=== PATIENT | female | born 1950 | race Hispanic/Latino ===

== ENCOUNTER 2022-10-04 12:07 | Day surgery (SDC) | payer OTHER ==
[2022-10-03 11:42] LABS: Absolute Lymphocytes (CBC) 1.4 K/uL (0.7-4.9); Hematocrit 30.3 % (36.0-45.0); Lymphocytes % 27.5 % (15.3-44.8)
[2022-10-03 11:57] LABS: Potassium 4.6 mmol/L (3.5-5.1)
--- NOTE | 2022-10-03 12:05 | RAD REPORT ---
EXAM DESCRIPTION: RAD - Chest Pa And Lat (2 Views) - 10/03/2022 11:59 am CLINICAL HISTORY: Pre op pending axillary mass removal COMPARISON: No comparisons FINDINGS: Lines: None. Lungs: No evidence of edema or pneumonia. Pleural: No significant pleural effusions or pneumothorax. Cardiac: The heart size is within normal limits. Mediastinum: Within normal limits. Bones: No acute fractures. Fusion hardware in the cervical spine. Other: None IMPRESSION: No acute cardiopulmonary disease.
--- NOTE | 2022-10-03 17:42 | EKG ---
Test Date: 2022-10-03 Test Time: 11:25:35 Operations Asst: TERRELL MEASUREMENT RESULTS: Intervals: Rate: 75 AL: 136 QRSD: 72 QT: 370 QTc: 413 [place]: P: 70 AL: 136 QRS: 61 T: 81 INTERPRETIVE STATEMENTS: Normal sinus rhythm Normal ECG No previous ECG available for comparison Electronically Signed On 10-03-22 17:41:24 [employer]LECT[employer] by Demarcus Ramirez
[2022-10-04] MEDS ORDERED: NA CHLORIDE 0.9% 1,000 ML ONE (12:18)
[2022-10-04] MEDS ORDERED: CIPROFLOXACIN 400mg IV 400 MG/200 ML BAG IV ONE (12:24)
[2022-10-04] MEDS ORDERED: propofoL 200 MG/20 ML VIAL IV ONE (12:59)
[2022-10-04] MEDS ORDERED: FENTANYL CITR 100 MCG/2 ML ONE (12:59)
[2022-10-04] MEDS ORDERED: LIDOCAINE 2% MPF 5 ML VIAL ONE (13:01)
[2022-10-04] MEDS ORDERED: MIDAZOLAM HCL 2 MG/2 ML INJ ONE (13:01)
[2022-10-04] MEDS ORDERED: ONDANSETRON 4 MG/2 ML VIAL ONE ×2 (13:02→14:42)
[2022-10-04] MEDS ORDERED: dexAMETHasone 10 MG/ML VIAL ONE (14:03)
--- NOTE | 2022-10-04 14:30 | P.BOP ---
Preoperative diagnosis: right axillary infected mass Postoperative diagnosis: same Primary procedure: Excisional biopsy of right axillary infected mass 4x4cm Estimated blood loss: <10cc Specimen: mass Findings: mass Anesthesia: General Complications: None Transferred to: Recovery Room Condition: Good
[2022-10-04] MEDS: HYDROMORPHONE HCL 1 MG/ML INJ ONE ×4 (14:40→14:56)
[2022-10-04] MEDS ORDERED: HYDROCODONE/APAP 5/325 MG TAB ONE (15:23)
[2022-10-04 16:33] VITALS: BP 149/73; TEMP 96.7; O2SAT 94
--- NOTE | 2022-10-05 04:45 | OP ---
Date of Procedure: 10/04/2022 Surgeon: Rohan Ng MD Preoperative Diagnosis: Right axillary infected mass. Postoperative Diagnosis: Right axillary infected mass. Procedure: Excisional biopsy of right axillary infected subcutaneous mass, 4 x 4 cm. Estimated Blood Loss: Less than 10 mL. Specimen: Subcutaneous mass. Anesthesia: General plus local. Indications: This is the case of a 72-year-old patient who comes to us with an infected mass in the axillary area. The patient has been on antibiotics. She even went to the ER and had incision and dr lackey, but it did not improve her condition. It is very tender, it is still putting purulent discha rge, so she wants it excised. The benefits, alternatives, and risks of excision under anesthesia wer e fully explained, which include but not limited to infection, bleeding, damage to adjacent structure s, anesthesia complication, nonhealing wound, [place], and even . She also understands this may not relieve her symptoms. She might need more than one surgical intervention she will require wound care . She signed the consent. Description Of Procedure: The area of concern was marked by me and the patient in the holding room. The patient was brought to the operating room, placed in the supine position. Anesthesia was given without complication. Right axillary area was prepped and draped in a sterile fashion. A time-out w as called. Local anesthesia was applied followed by a wedge incision on the skin to include also the subcutaneous tissue. The mass was completely excised. The area was irrigated, hemostasis obtained, and the area was packed with wet-to- dry dressing. The patient tolerated the procedure well. The patient was sent to Recovery in stable condition. JAZMINE/JONY Voice ID: [id number] Report ID: [id number]
--- NOTE | 2022-10-05 04:45 | DS ---
Date of Discharge: 10/04/2022 Diagnosis: Right axillary infected mass. Procedure: Excisional biopsy of right axillary infected subcutaneous mass. Disposition: Home. Activity: As tolerated. No heavy lifting. Follow Up: In my office next Friday. Call for appointment. Discharge Instructions: The patient will continue with triple antibiotics over the surgical site, an d then wet-to-dry dressing daily. JAZMINE/JONY Voice ID: [id number] Report ID: [id number]
== END 2022-10-04 16:10 | disposition home or self-care (01) ==
LOC: OR 12:07 → EDBD 13:30 → OR 16:10
PROVIDERS: ATTEND Surgery
PROC: 0JBD0ZZ Excision of Right Upper Arm Subcutaneous Tissue and Fascia, Open Approach (ICD-10-PCS; principal; 2022-10-04 13:30)
DX: R22.31 Localized swelling, mass and lump, right upper limb (principal); I96 Gangrene, not elsewhere classified
CPT/HCPCS: 93005; 85025; 80048; 36415; 82947; 88305; 71046; 11406; J2704; J2001; J2250; J3010; J1100; J1170 ×2; J7030; J2405 ×2; J0744; 88304

== ENCOUNTER 2023-08-08 10:39 | Emergency (ER) | payer OTHER ==
--- OUTSIDE RECORDS SUMMARY | 2023-08-08 10:43 | XMS REPORT | Continuity of Care Document ---
:1950 Author Organization Formerly [facility] t Address [address] [facility] [address] [place] [address] Care Team Providers Name Role Phone ABRAHAM CARLSON Primary Care Physician Unavailable CHANDRA MARQUEZ Attending Clinician Unavailable Chandra Marquez MD Attending Clinician DARRICK CAZARES Attending Clinician Unavailable Darrick Cazares DO Attending Clinician ARTUR BRIGGS Attending Clinician Unavailable Artur Briggs MD Attending Clinician [phone] Tabatha Woodruff PA-C Attending Clinician TABATHA WOODRUFF Attending Clinician Unavailable Gamal Young Attending Clinician Yoan Vasquez MD Attending Clinician YOAN VASQUEZ Attending Clinician Unavailable Doctor Unassigned, [place] Attending Clinician Unavailable Payers Payer Name Policy Type Policy Number Effective Date Expiration Date [facility] [id number] [facility] 00:00:00 PPO Problems Condition Condition Condition Status Onset Resolution Last Treating Co mments Source Name Details Category Date Date Treatment Clinician Date No known No known Disease Unive rs active active ity of problems problems [place] [facility] [place] Allergies, Adverse Reactions, Alerts Allergy Allergy Status Severity Reaction(s) Onset Inactive Treating Comm ents Source Name Type Date Date Clinician PENICILL DRUG Active Rash Univers IN INGREDI 03-11 ity of 00:00: [place] 00 Medical Branch Penicill Propensi Active Rash Univer s in ty to 03-11 ity of adverse 00:00: [place] reaction 00 Medical s Branch Social History Social Habit Start Date Stop Date Quantity Comments Source Gender identity Universit y of [facility] Sexual orientation Univer sity [facility] Exposure to 2022-08-30 2022-09-09 Not sure [facility] SARS-CoV-2 (event) 00:00:00 11:43:00 [facility] Alcohol intake 2022-09-09 2022-09-09 Current University of 00:00:00 00:00:00 non-drinker of [facility] alcohol Branch (finding) History of Social 2019-04-15 2019-04-15 Univers ity of function 00:00:00 00:00:00 [facility] Tobacco use and 2018-03-11 2018-03-11 Smokeless Universit y of exposure 00:00:00 00:00:00 tobacco non-user [facility] [place] [facility] Sex Assigned At [birth year] Universit y of 00:00:00 00:00:00 [facility] Smoking Status Start Date Stop Date Source Never smoked tobacco [facility] Medications Ordered Filled Start Stop Current Ordering Indication Dosage Frequency Signature Comments Components Source Medication Medication Date Date Medication? Clinician (SIG) Name Name sulfamethox 2021-10 Yes [id number] 1{tbl} Take 1 Univers azole-trime 2-05 tablet by ity of thoprim 00:00: mouth [place] 800-160 mg 00 every 12 Medic al per tablet (twelve) Branc h hours. sulfamethox 2021-10 Yes [id number] 1{tbl} Take 1 Univers azole-trime 2-05 tablet by ity of thoprim 00:00: mouth [place] 800-160 mg 00 every 12 Medic al per tablet (twelve) Branc h hours. lidocaine 2021-10- No 10mL 10 mL, Unive rs 1% (PF) 11-06 Infiltrati ity o f (XYLOCAINE) 16:30: 16:30 on, ONCE, [place] injection 00 :00 1 dose, On Medi jennifer 10 mL [facility] Branch 09/05/22 at 1030, Routine HYDROcodone 2021-10- No 1{tbl} 1 tablet, Univers -acetaminop 11-06 Oral, ONCE i ty of hen (NORCO) 16:30: 15:58 NOW, 1 [place] as 10-325 mg 00 :00 dose, On Medica l tablet 1 [place] Branch tablet 09/05/22 at 1030, Routine acetaminoph 2021-10 Yes [id number] 1{tbl} Take 1 Un christian en-codeine 2-01 tablet by ity of (TYLENOL-CO 00:00: mouth [place] DEINE #3) 00 every 6 Medical 300-30 mg (six) Branch tablet hours as needed for Pain (scale 4-6). Indication s: acute pain clindamycin 2021-10 Yes [id number] 300mg Take 1 Univers 300 mg 2-01 capsule by ity of capsule 00:00: mouth 4 [place] 00 (four) Medical times Branch daily. acetaminoph 2021-10 Yes [id number] 1{tbl} Take 1 Un christian en-codeine 2-01 tablet by ity of (TYLENOL-CO 00:00: mouth [place] DEINE #3) 00 every 6 Medical 300-30 mg (six) Branch tablet hours as needed for Pain (scale 4-6). Indication s: acute pain clindamycin 2021-10 Yes [id number] 300mg Take 1 Univers 300 mg 2-01 capsule by ity of capsule 00:00: mouth 4 [place] 00 (four) Medical times Branch daily. clindamycin 2021-10- No [id number] 300mg Take 1 Univers 300 mg 2-01 12-12 capsule by ity of capsule 00:00: 05:59 mouth 4 [place] 00 :00 (four) Medical times Branch daily for 10 days. acetaminoph 2021-10- No [id number] 1{tbl} Take 1 U nivers en-codeine 2-01 12-09 tablet by ity of (TYLENOL-CO 00:00: 05:59 [place] DEINE #3[place] 00 :00 every 6 Medical 300-30 mg (six) Branch tablet hours as needed for Pain (scale 4-6) for up to 7 days. Indication s: acute pain HYDROCODONE Yes Take by Uni vers -ACETAMINOP 7-09 mouth. ity of HEN ORAL 12:21: [place] 14 Medical Branch metFORMIN Yes 1000mg Take 1,000 Univers 1,000 mg 7-09 mg by ity of tablet 12:21: mouth 2 [place] 14 (two) Medical times Branch daily with meals. GLIMEPIRIDE 2-0 Yes 4mg Take 4 mg U nivers ORAL 7-09 by mouth. ity of 12:21: [place] [address] Medical Branch amLODIPine 2021-0 Yes 5mg Take 5 mg Un christian 5 mg tablet 7-09 by mouth ity of 12:21: daily. [place] [address] Medical Branch valsartan 2021-0 Yes 320mg Take 320 Uni vers 320 mg 7-09 mg by ity of tablet 12:21: mouth [place] 14 daily. Medical Branch HYDROCODONE 2021-0 Yes Take by Uni vers -ACETAMINOP 7-09 mouth. ity of HEN ORAL 12:21: [address] Branch metFORMIN 2021-0 Yes 1000mg Take 1,000 Univers 1,000 mg 7-09 mg by ity of tablet 12:21: mouth 2 [place] [address] (two) Medical times [place] daily with meals. GLIMEPIRIDE 2-0 Yes 4mg Take 4 mg U nivers ORAL 7-09 by mouth. ity of 12:21: [place] [address] Medical Branch amLODIPine 2021-0 Yes 5mg Take 5 mg Un christian 5 mg tablet 7-09 by mouth ity of 12:21: daily. [place] [address] Medical Branch valsartan 2021-0 Yes 320mg Take 320 Uni vers 320 mg 7-09 mg by ity of tablet 12:21: mouth [place] 14 daily. Medical Branch HYDROCODONE 2021-0 Yes Take by Uni vers -ACETAMINOP 7-09 mouth. ity of HEN ORAL 12:21: [address] metFORMIN 2021-0 Yes 1000mg Take 1,000 Univers 1,000 mg 7-09 mg by ity of tablet 12:21: mouth 2 [place] [address] (two) [facility] times [place] daily with meals. GLIMEPIRIDE 2-0 Yes 4mg Take 4 mg U nivers ORAL 7-09 by mouth. ity of 12:21: [address] Branch amLODIPine 2-0 Yes 5mg Take 5 mg Un christian 5 mg tablet 7-09 by mouth ity of 12:21: daily. [address] Branch valsartan 2-0 Yes 320mg Take 320 Uni vers 320 mg 7-09 mg by ity of tablet 12:21: mouth [place] 14 daily. Medical Branch HYDROCODONE 2021-0 Yes Take by Uni vers -ACETAMINOP 7-09 mouth. ity of HEN ORAL 12:21: [address] metFORMIN 2021-0 Yes 1000mg Take 1,000 Univers 1,000 mg 7-09 mg by ity of tablet 12:21: mouth 2 [place] [address] ([facility]) Medical times [place] daily with meals. GLIMEPIRIDE 2-0 Yes 4mg Take 4 mg U nivers ORAL 7-09 by mouth. ity of 12:21: [address] amLODIPine 2-0 Yes 5mg Take 5 mg Un christian 5 mg tablet 7-09 by mouth ity of 12:21: daily. [address] Branch valsartan 2021-0 Yes 320mg Take 320 Uni vers 320 mg 7-09 mg by ity of tablet 12:21: mouth [place] [address] daily. Medical Branch HYDROCODONE 2021-0 Yes Take by Uni vers -ACETAMINOP 7-09 mouth. ity of HEN ORAL 12:21: [address] metFORMIN 2021-0 Yes 1000mg Take 1,000 Univers 1,000 mg 7-09 mg by ity of tablet 12:21: mouth 2 [place] [address] ([facility]) [facility] times [place] daily with meals. GLIMEPIRIDE 2-0 Yes 4mg Take 4 mg U nivers ORAL 7-09 by mouth. ity of 12:21: [address] amLODIPine 2-0 Yes 5mg Take 5 mg Un christian 5 mg tablet 7-09 by mouth ity of 12:21: daily. [address] valsartan 2021-0 Yes 320mg Take 320 Uni vers 320 mg 7-09 mg by ity of tablet 12:21: mouth [place] [address] daily. Medical Branch HYDROCODONE 2021-0 Yes Take by Uni vers -ACETAMINOP 7-09 mouth. ity of HEN ORAL 12:21: [address] metFORMIN 2021-0 Yes 1000mg Take 1,000 Univers 1,000 mg 7-09 mg by ity of tablet 12:21: mouth 2 [place] [address] ([facility]) [facility] times [place] daily with meals. GLIMEPIRIDE 2022-0 Yes 4mg Take 4 mg U nivers ORAL 7-09 by mouth. ity of 12:21: [address] amLODIPine 2-0 Yes 5mg Take 5 mg Un christian 5 mg tablet 7-09 by mouth ity of 12:21: daily. [address] Branch valsartan 2021-0 Yes 320mg Take 320 Uni vers 320 mg 7-09 mg by ity of tablet 12:21: mouth [place] 14 daily. Medical Branch HYDROCODONE 0 Yes Take by Uni vers -ACETAMINOP 7-09 mouth. ity of HEN ORAL 12:21: [address] Branch metFORMIN 2021-0 Yes 1000mg Take 1,000 Univers 1,000 mg 7-09 mg by ity of tablet 12:21: mouth 2 [place] [address] ([facility]) Medical times [place] daily with meals. GLIMEPIRIDE 2021-0 Yes 4mg Take 4 mg U nivers ORAL 7-09 by mouth. ity of 12:21: [address] Branch amLODIPine 2021-0 Yes 5mg Take 5 mg Un christian 5 mg tablet 7-09 by mouth ity of 12:21: daily. [address] valsartan 0 Yes 320mg Take 320 Uni vers 320 mg 7-09 mg by ity of tablet 12:21: mouth [place] 14 daily. Medical Branch HYDROCODONE 0 Yes Take by Uni vers -ACETAMINOP 7-09 mouth. ity of HEN ORAL 12:21: [address] metFORMIN 2021-0 Yes 1000mg Take 1,000 Univers 1,000 mg 7-09 mg by ity of tablet 12:21: mouth 2 [place] [address] (two) [facility] times [place] daily with meals. GLIMEPIRIDE 2021-0 Yes 4mg Take 4 mg U nivers ORAL 7-09 by mouth. ity of 12:21: [address] amLODIPine 2021-0 Yes 5mg Take 5 mg Un christian 5 mg tablet 7-09 by mouth ity of 12:21: daily. [address] Branch valsartan 2021-0 Yes 320mg Take 320 Uni vers 320 mg 7-09 mg by ity of tablet 12:21: mouth [place] 14 daily. Medical Branch HYDROCODONE 2021-0 Yes Take by Uni vers -ACETAMINOP 7-09 mouth. ity of HEN ORAL 12:21: [address] metFORMIN 2021-0 Yes 1000mg Take 1,000 Univers 1,000 mg 7-09 mg by ity of tablet 12:21: mouth 2 [place] [address] (two) Medical times [place] daily with meals. GLIMEPIRIDE 0 Yes 4mg Take 4 mg U nivers ORAL 7-09 by mouth. ity of 12:21: [address] Branch amLODIPine 0 Yes 5mg Take 5 mg Un christian 5 mg tablet 7-09 by mouth ity of 12:21: daily. [address] Branch valsartan 0 Yes 320mg Take 320 Uni vers 320 mg 7-09 mg by ity of tablet 12:21: mouth [place] 14 daily. Medical Branch HYDROCODONE Yes Take by Uni vers -ACETAMINOP 7-09 mouth. ity of HEN ORAL 12:21: [address] Branch metFORMIN 0 Yes 1000mg Take 1,000 Univers 1,000 mg 7-09 mg by ity of tablet 12:21: mouth 2 [place] [address] (two) Medical times Branch daily with meals. GLIMEPIRIDE Yes 4mg Take 4 mg U nivers ORAL 7-09 by mouth. ity of 12:21: [address] Branch amLODIPine 0 Yes 5mg Take 5 mg Un christian 5 mg tablet 7-09 by mouth ity of 12:21: daily. [address] Branch valsartan Yes 320mg Take 320 Uni vers 320 mg 7-09 mg by ity of tablet 12:21: mouth [place] 14 daily. Medical Branch benzonatate 0 Yes [id number] 200mg Take 2 Univers 100 mg 7-09 capsules ity of capsule 00:00: by mouth [place] 00 every 8 Medical (eight) Branch hours as needed for Cough. albuterol Yes [id number] 2{puff} Inhale 2 Univers 90 7-09 Puffs ity of mcg/actuati 00:00: every 6 [place] as on inhaler 00 (six) Medical hours as Branch needed for Shortness of Breath. ondansetron 0 Yes [id number] 4mg Take 1 Univers 4 mg 7-09 tablet by ity of disintegrat 00:00: mouth [place] ing tablet 00 every 8 Medica l (eight) Branch hours as needed for Nausea and Vomiting (N/V). benzonatate 0 Yes [id number] 200mg Take 2 Univers 100 mg 7-09 capsules ity of capsule 00:00: by mouth [place] 00 every 8 Medical (eight) Branch hours as needed for Cough. albuterol 2021-0 Yes [id number] 2{puff} Inhale 2 Univers 90 7-09 Puffs ity of mcg/actuati 00:00: every 6 [place] as on inhaler 00 (six) Medical hours as Branch needed for Shortness of Breath. ondansetron 2021-0 Yes [id number] 4mg Take 1 Univers 4 mg 7-09 tablet by ity of disintegrat 00:00: mouth [place] ing tablet 00 every 8 Medica l (eight) Branch hours as needed for Nausea and Vomiting (N/V). benzonatate 2021-0 Yes [id number] 200mg Take 2 Univers 100 mg 7-09 capsules ity of capsule 00:00: by mouth [place] 00 every 8 Medical (eight) Branch hours as needed for Cough. albuterol 2021-0 Yes [id number] 2{puff} Inhale 2 Univers 90 7-09 Puffs ity of mcg/actuati 00:00: every 6 [place] as on inhaler 00 (six) Medical hours as Branch needed for Shortness of Breath. ondansetron 2021-0 Yes [id number] 4mg Take 1 Univers 4 mg 7-09 tablet by ity of disintegrat 00:00: mouth [place] ing tablet 00 every 8 Medica l (eight) Branch hours as needed for Nausea and Vomiting (N/V). benzonatate 2021-0 Yes [id number] 200mg Take 2 Univers 100 mg 7-09 capsules ity of capsule 00:00: by mouth [place] 00 every 8 Medical (eight) Branch hours as needed for Cough. albuterol 2021-0 Yes [id number] 2{puff} Inhale 2 Univers 90 7-09 Puffs ity of mcg/actuati 00:00: every 6 [place] as on inhaler 00 (six) Medical hours as Branch needed for Shortness of Breath. ondansetron 2-0 Yes [id number] 4mg Take 1 Univers 4 mg 7-09 tablet by ity of disintegrat 00:00: mouth [place] ing tablet 00 every 8 Medica l (eight) Branch hours as needed for Nausea and Vomiting (N/V). benzonatate 2022-0 Yes [id number] 200mg Take 2 Univers 100 mg 7-09 capsules ity of capsule 00:00: by mouth [place] 00 every 8 Medical (eight) Branch hours as needed for Cough. albuterol 2021-0 Yes [id number] 2{puff} Inhale 2 Univers 90 7-09 Puffs ity of mcg/actuati 00:00: every 6 [place] on inhaler 00 (six) Medical hours as Branch needed for Shortness of Breath. ondansetron 2021-0 Yes [id number] 4mg Take 1 Univers 4 mg 7-09 tablet by ity of disintegrat 00:00: mouth [place] ing tablet 00 every 8 Medica l (eight) Branch hours as needed for Nausea and Vomiting (N/V). benzonatate 2021-0 Yes [id number] 200mg Take 2 Univers 100 mg 7-09 capsules ity of capsule 00:00: by mouth [place] 00 every 8 Medical (eight) Branch hours as needed for Cough. albuterol 2021-0 Yes [id number] 2{puff} Inhale 2 Univers 90 7-09 Puffs ity of mcg/actuati 00:00: every 6 [place] as on inhaler 00 (six) Medical hours as Branch needed for Shortness of Breath. ondansetron 2021-0 Yes [id number] 4mg Take 1 Univers 4 mg 7-09 tablet by ity of disintegrat 00:00: mouth [place] ing tablet 00 every 8 Medica l (eight) Branch hours as needed for Nausea and Vomiting (N/V). benzonatate 2021-0 Yes [id number] 200mg Take 2 Univers 100 mg 7-09 capsules ity of capsule 00:00: by mouth [place] 00 every 8 Medical (eight) Branch hours as needed for Cough. albuterol 2021-0 Yes [id number] 2{puff} Inhale 2 Univers 90 7-09 Puffs ity of mcg/actuati 00:00: every 6 [place] as on inhaler 00 (six) Medical hours as Branch needed for Shortness of Breath. ondansetron 2021-0 Yes [id number] 4mg Take 1 Univers 4 mg 7-09 tablet by ity of disintegrat 00:00: mouth [place] ing tablet 00 every 8 Medica l (eight) Branch hours as needed for Nausea and Vomiting (N/V). benzonatate 2022-0 Yes [id number] 200mg Take 2 Univers 100 mg 7-09 capsules ity of capsule 00:00: by mouth [place] 00 every 8 Medical (eight) Branch hours as needed for Cough. albuterol Yes [id number] 2{puff} Inhale 2 Univers 90 7-09 Puffs ity of mcg/actuati 00:00: every 6 [place] as on inhaler 00 (six) Medical hours as Branch needed for Shortness of Breath. ondansetron Yes [id number] 4mg Take 1 Univers 4 mg 7-09 tablet by ity of disintegrat 00:00: mouth [place] ing tablet 00 every 8 Medica l (eight) Branch hours as needed for Nausea and Vomiting (N/V). ESCITALOPRA 2017-10 Yes [id number] 10mg TAKE 1 Univers M OXALATE 1-20 TABLET BY ity o f 10 mg 00:00: MOUTH [place] tablet 00 DAILY Medical Branch ESCITALOPRA 2017-10 Yes [id number] 10mg TAKE 1 Univers M OXALATE 1-20 TABLET BY ity o f 10 mg 00:00: MOUTH [place] tablet DAILY Medical Branch ESCITALOPRA 2017-10 Yes [id number] 10mg TAKE 1 Univers M OXALATE 1-20 TABLET BY ity o f 10 mg 00:00: MOUTH [place] tablet 00 DAILY Medical Branch ESCITALOPRA 2017-10 Yes [id number] 10mg TAKE 1 Univers M OXALATE 1-20 TABLET BY ity o f 10 mg 00:00: MOUTH [place] tablet DAILY Medical Branch ESCITALOPRA 2017-10 Yes [id number] 10mg TAKE 1 Univers M OXALATE 1-20 TABLET BY ity o f 10 mg 00:00: MOUTH [place] tablet DAILY Medical Branch ESCITALOPRA 2017-10 Yes [id number] 10mg TAKE 1 Univers M OXALATE 1-20 TABLET BY ity o f 10 mg 00:00: MOUTH [place] tablet 00 DAILY Medical Branch ESCITALOPRA 2017-10 Yes [id number] 10mg TAKE 1 Univers M OXALATE 1-20 TABLET BY ity o f 10 mg 00:00: MOUTH [place] tablet 00 DAILY Medical Branch ESCITALOPRA 2017-10 Yes [id number] 10mg TAKE 1 Univers M OXALATE 1-20 TABLET BY ity o f 10 mg 00:00: MOUTH [place] tablet 00 DAILY Medical Branch ESCITALOPRA 2017-10 Yes [id number] 10mg TAKE 1 Univers M OXALATE 1-20 TABLET BY ity o f 10 mg 00:00: MOUTH [place] tablet DAILY Medical Branch ESCITALOPRA 2017-10 Yes [id number] 10mg TAKE 1 Univers M OXALATE 1-20 TABLET BY ity o f 10 mg 00:00: MOUTH [place] tablet 00 DAILY Medical Branch Vital Signs Vital Name Observation Time Observation Value Comments Source Systolic blood 2023-06-11 15:36:00 103 mm[Hg] Univer sity of pressure [facility] Branch Diastolic blood 2023-06-11 15:36:00 85 mm[Hg] Unive rsity of pressure [facility] Branch Heart rate 2023-06-11 15:36:00 82 /min Universi ty of [facility] Branch Body temperature 2023-06-11 15:36:00 36.5 Trang Univ ersity of [facility] Branch Respiratory rate 2023-06-11 15:36:00 16 /min Univ ersity of [facility] Branch Body height 2023-06-11 15:36:00 149.9 cm Universi ty of [place] [facility] [place] Body weight 2023-06-11 15:36:00 43.092 kg Universi ty of [place] [facility] [place] BMI 2023-06-11 15:36:00 19.19 kg/m2 Universi ty of [place] [facility] Oxygen saturation in 2023-06-11 15:36:00 100 /min University of Arterial blood by [place] [facility] jennifer Pulse oximetry Branch Systolic blood 2022-09-09 17:45:00 123 mm[Hg] Univer sity of [facility] Branch Diastolic blood 2022-09-09 17:45:00 61 mm[Hg] Unive rsity of pressure [facility] Branch Heart rate 2022-09-09 17:45:00 70 /min Universi ty of [facility] Branch Body temperature 2022-09-09 17:45:00 37 Trang Univ ersity of [facility] Branch Respiratory rate 2022-09-09 17:45:00 18 /min Univ ersity of [facility] Branch Body height 2022-09-09 17:45:00 152.4 cm Universi ty of [place] [facility] Body weight 2022-09-09 17:45:00 50.803 kg Universi ty of [place] [facility] BMI 2022-09-09 17:45:00 21.87 kg/m2 Universi ty of [place] [facility] Oxygen saturation in 2022-09-09 17:45:00 100 /min University of Arterial blood by [place] [facility] jennifer Pulse oximetry Branch Systolic blood 2022-09-05 17:00:00 125 mm[Hg] [facility] pressure [facility] Diastolic blood 2022-09-05 17:00:00 63 mm[Hg] [facility] Heart rate 2022-09-05 17:00:00 74 /min [facility] Respiratory rate 2022-09-05 17:00:00 16 /min [facility] Oxygen saturation in 2022-09-05 17:00:00 98 /min [facility] Arterial blood by [facility] Pulse oximetry [place] Body temperature 2022-09-05 15:05:00 36.39 Trang [facility] Body height 2022-09-05 15:05:00 152.4 cm [facility] Body weight 2022-09-05 15:05:00 50.803 kg [facility] BMI 2022-09-05 15:05:00 21.87 kg/m2 [facility] Procedures Procedure Date / Time Performing Clinician Source Performed ASSIGNMENT OF BENEFITS 2023-06-11 18:15:45 Doctor Unassigned, No [facility] Name [facility] TROPONIN I 2023-06-11 17:17:00 Jimmy Chandra [facility] FREE T4 2023-06-11 17:17:00 Jimmy [facility] THYROID STIMULATING 2023-06-11 17:17:00 Chandra Marquez [facility] HORMONE [facility] COMP. METABOLIC PANEL 2023-06-11 17:17:00 Chandra Marquez [facility] ([id number]) [facility] CBC WITH DIFF 2023-06-11 17:17:00 Jimmy Chandra [facility] URINALYSIS 2023-06-11 17:17:00 Chandra Marquez [facility] RAPID INFLUENZA A/B 2023-06-11 17:17:00 Chandra Marquez [facility] N-TERMINAL PRO-BNP 2023-06-11 17:17:00 Chandra Marquez [facility] COVID-19 (ID NOW RAPID 2023-06-11 17:17:00 Chandra Marquez [facility] TESTING) Medical Branch CONSENT/REFUSAL FOR 2023-06-11 15:29:23 Doctor Unassigned, No [facility] [place] DIAGNOSIS AND TREATMENT Name Medical Branch CONSENT/REFUSAL FOR 2022-09-09 17:40:47 Doctor Unassigned, No [facility] [place] DIAGNOSIS AND TREATMENT Name Medical Branch NOTICE OF PRIVACY 2022-09-05 15:00:38 Doctor Unassigned, No Univ [facility] [place] PRACTICES Name Medical Branch CONSENT/REFUSAL FOR 2022-09-05 14:59:25 Doctor Unassigned, No [facility] [place] DIAGNOSIS AND TREATMENT Name Medical Branch XR HIPS 2 VW LEFT 2022-07-04 19:47:16 Tabatha Woodruff [facility] Medical Branch XR HIPS 2 VW RIGHT 2022-07-04 19:33:21 Tabatha Woodruff [facility] Medical Branch REFERRAL- 2022-04-04 05:01:00 Doctor Unassigned, No [facility] [place] REQUEST/RESPONSE Name Medical Branch REFERRAL- 2022-03-28 05:01:00 Doctor Unassigned, No [facility] [place] REQUEST/RESPONSE Name Medical Branch Encounters Start End Encounter Admission Attending Care Care Encounter Source Date/Time Date/Time Type Type Clinicians Facility Department ID 2023-06-11 2023-06-11 [facility] [id number] Univers 10:39:00 14:47:00 CHANDRA martin [facility] 2023-06-11 2023-06-11 [facility] [id number] Univers 10:39:00 14:47:00 Chandra LOTT [id number] i ty of [place] 4.2.7.2.686 [facility] [id number] [facility] 084 Branch 2022-09-09 2022-09-09 Emergency [facility] [id number] Univers 11:48:00 13:09:00 DARRICK ity [facility] 2022-09-09 2022-09-09 Emergency Singer [facility] [id number] Univers 11:48:00 13:09:00 Darrick LOTT [id number] i ty of [place] 4.2.7.2.686 [facility] [id number] [facility] [address] [place] 2022-09-05 2022-09-05 Emergency X AUFDERIDE [facility] ERT [id number] Univers 09:06:00 11:53:00 , ARTUR ity of [facility] 2022-09-05 2022-09-05 [facility] [id number] Univers 09:06:00 11:53:00 , Artur KAYLIE [id number] i ty of [place] 4.2.7.2.686 [facility] [id number] [facility] [address] [place] 2022-07-04 2022-07-04 [facility] [id number] Univers 14:38:07 23:59:00 Encounter [place] [id number] ity of [place] 4.2.7.[address] [place] [address] [id number] [facility] [address] [place] 2022-07-04 2022-07-04 [facility] [id number] Univers 13:59:14 14:37:00 Encounter [place] [id number] ity of [place] 4.2.7.2.[address] [place] [address] [id number] [facility] [address] [place] 2022-07-04 2022-07-04 Outpatient R [facility] [id number] Univers 13:59:14 14:37:00 ity of [facility] 2022-05-16 2022-05-16 Letter ISRAEL Young [id number] Univers 00:00:00 00:00:00 (Out) Gamal VALERIO [id number] i ty of [facility] 4.2.7.2.686 [place] as [id number] [facility] 043 Branch 2022-05-06 2022-05-06 Senthil Vasquez [facility] [id number] Univers 00:00:00 [facility]:00:00 [facility] [id number] it y of [place] 4.2.7.2.686 [place] as LIZABETH?BLEA [id number] [address] OFFICE [facility] 2022-04-14 2022-04-14 [facility]phone [facility] [id number] Univers 00:00:00 00:00:00 [facility] [id number] it y of [place] [id number] Gino as LIZABETH?BLEA [id number] [address] 2022-04-13 2022-04-13 [facility] [id number] Univers 12:00:00 12:20:00 Care [facility] [id number] it y of [place] [id number] Gino as LIZABETH?BLEA [id number] [address] 2022-04-13 2022-04-13 Out[facility] [id number] [facility] 12:00:00 12:00:00 YOAN ity [facility] 2022-04-13 2022-04-13 Orders Doctor ISRAEL [id number] Univers 00:00:00 00:00:00 Only Unassigned, TEODORO [id number] ity of [place] [facility] [id number] Gino as [id number] [address] 2022-04-04 2022-04-04 Orders Doctor ISRAEL [id number] Univers 00:00:00 00:00:00 Only Unassigned, TEODORO [id number] ity of [place] [facility] [id number] Gino as [id number] [address] 2022-03-28 2022-03-28 Orders Doctor ISRAEL [id number] Univers 00:00:00 00:00:00 Only Unassigned, TEODORO [id number] ity of [place] [facility] [id number] Gino as [id number] [address] Results This patient has no known results.
[2023-08-08 11:27] LABS: Absolute Lymphocytes (CBC) 1.2 K/uL (0.7-4.9); Hematocrit 22.8 % (36.0-45.0); Lymphocytes % 31.8 % (15.3-44.8); MCV 79.3 fL (80-100); MPV 9.2 fL (7.6-11.3); Platelets 159 thou/uL (152-406); RBC Red Blood Cell Count 2.87 M/uL (3.86-4.86)
[2023-08-08] MEDS ORDERED: MORPHINE 4 MG/ML SYR ONE (11:34)
[2023-08-08] MEDS ORDERED: PANTOPRAZOLE 40 MG INJ ONE (11:34)
[2023-08-08] MEDS ORDERED: NA CHLORIDE 0.9% 1,000 ML ONE (11:34)
[2023-08-08] MEDS ORDERED: ONDANSETRON 4 MG/2 ML VIAL ONE (11:34)
[2023-08-08 11:35] LABS: Protime INR 1.07
[2023-08-08 11:42] LABS: Specific Gravity 1.012 (1.005-1.030); Urine Bacteria None Seen /HPF (<20); Urine Bilirubin NEGATIVE (Negative); Urine Blood Negative (Negative); Urine Clarity Clear (Clear); Urine Color Light-Yellow (Yellow); Urine Glucose NEGATIVE (Negative); Urine Protein NEGATIVE (Negative); Urine RBC None Seen /HPF (None Seen); Urine Urobilinogen Normal (Normal); Urine pH 7.5 (5.0-7.0)
[2023-08-08 11:51] LABS: Albumin 3.4 g/dL (3.4-5.0); Bilirubin Direct 0.2 mg/dL (0-0.2); Bilirubin Indirect, Calculated 0.3 mg/dL (0.2-0.8); Bilirubin Total 0.5 mg/dL (0.2-1.0); Protein, Total 7.1 g/dL (6.4-8.2); Troponin High Sensitivity 5.3 pg/mL (<58.9)
--- NOTE | 2023-08-08 11:59 | RAD REPORT ---
EXAM DESCRIPTION: RAD - Chest Single View - 08/08/2023 11:53 am CLINICAL HISTORY: SOB COMPARISON: Chest Pa And Lat (2 Views) dated 10/03/2022 FINDINGS: Lines: None. Lungs: No evidence of edema or pneumonia. Pleural: No significant pleural effusions or pneumothorax. Cardiac: The heart size is within normal limits. Mediastinum: Within normal limits. Bones: No acute fractures. Fusion hardware in the cervical spine. Other: None IMPRESSION: No acute cardiopulmonary disease.
--- NOTE | 2023-08-08 12:18 | RAD REPORT ---
EXAM DESCRIPTION: CTAbdomen Pelvis W Contrast - 08/08/2023 12:07 pm CLINICAL HISTORY: back pain, right groin pain;Abd pain COMPARISON: No comparisons TECHNIQUE: CT of the abdomen and pelvis was performed with IV contrast. All CT scans are performed using dose optimization technique as appropriate and may include automated exposure control or mA/KV adjustment according to patient size. FINDINGS: Lower chest: Mild circumferential thickened distal esophagus. Liver: Mild intrahepatic biliary ductal dilatation. Low-density lesion in the posterior right hepatic lobe that is not well characterized and measuring approximately 3.3 cm. Nodular liver contour. Mild ascites. Biliary: Cholecystectomy. The common bile duct measures 13 millimeters and is dilated. No filling def ects or mass identified. Stomach: No significant focal abnormality. Duodenum: No significant focal abnormality. Pancreas: No significant abnormality. Spleen: No significant abnormality. Adrenal: Right adrenal mass measuring 2.5 cm is indeterminate. Kidney/ureter: No hydronephrosis. No renal calculi. Retroperitoneum: No retroperitoneal adenopathy. Vascular: No aneurysm. Atherosclerosis Bowel: No significant focal abnormality. Peritoneum: No ascites or free air. Bladder: Grossly unremarkable. Reproductive: No adnexal masses. Hysterectomy Bones: No acute fracture. Mild compression deformity at L1 appears chronic. Multilevel degenerative c hanges are present in the spine. Other: n/a IMPRESSION: 1. Cirrhotic liver morphology. Possible mass in the posterior right hepatic lobe. Recomm end further evaluation with hepatic protocol MRI which can be performed non emergently . 2. Cholecystectomy. Extrahepatic biliary duct dilatation. This is more than expected for the typical postcholecystectomy state. MRCP could further evaluate. 3. Indeterminate right adrenal lesion. This too can be assessed on the MRI recommended on impression 1.
--- NOTE | 2023-08-08 12:57 | ER ---
Nurse's Notes [facility] Name: Misti Chavarria Age: 72 yrs Sex: Female : 1950 Arrival Date: 08/08/2023 Time: 10:39 Bed 15 Private MD: Zane Pillai Diagnosis: right groin pain;right back pain;hyperglycemia;elevated lipase;adrenal nodule;Liver disease, unspecified;microcytic anemia;constipation Presentation: 08/08 10:57 Chief complaint: Right low back pain that radiates to right groin, constipation, and hb decreased appetite x 1 week, dark urine and SOB x 2 days. Coronavirus screen: At this time, the client does not indicate any symptoms associated with coronavirus-19. Ebola Screen: No symptoms or risks identified at this time. Initial Sepsis Screen: Does the patient meet any 2 criteria? No. Patient's initial sepsis screen is negative. Does the patient have a suspected source of infection? No. Patient's initial sepsis screen is negative. Risk Assessment: Do you want to hurt yourself or someone else? Patient reports no desire to harm self or others. Onset of symptoms was August 01, 2023. 10:57 Method Of Arrival: Ambulatory hb 10:57 Acuity: ZACH 3 hb Historical: - Allergies: 10:58 No Known Allergies; hb - Home Meds: 10:58 Metformin Oral [Active]; hb - PSHx: 10:58 Cholecystectomy; Appendectomy; Hysterectomy; Neck; hb - Immunization history:: Adult Immunizations unknown. - Family history:: not pertinent. - Social history:: Smoking status: Patient denies any tobacco usage or history of. Screenin:00 [facility] ED Fall Risk Assessment (Adult) History of falling in the last 3 months, db including since admission No falls in past 3 months (0 pts) Confusion or Disorientation No (0 pts) Intoxicated or Sedated No (0 pts) Impaired Gait No (0 pts) Mobility Assist Device Used No (0 pt) Altered Elimination No (0 pt) Score/Fall Risk Level 0 - 2 = Low Risk Oriented to surroundings, Maintained a safe environment. Abuse screen: Denies threats or abuse. Denies injuries from another. Nutritional screening: No deficits noted. Tuberculosis screening: No symptoms or risk factors identified. Assessment: 11:00 Reassessment: Patient appears in no apparent distress at this time. Patient and/or db family updated on plan of care and expected duration. Pain level reassessed. Patient is alert, oriented x 3, equal unlabored respirations, skin warm/dry/pink. General: Appears in no apparent distress. comfortable, Behavior is calm, cooperative. Pain: Denies pain. Neuro: Level of Consciousness is awake, alert, obeys commands, Oriented to person, place, time, situation. Respiratory: Airway is patent Respiratory effort is even, unlabored, Respiratory pattern is regular, symmetrical. GI: Bowel sounds Abd is soft and non tender. 13:00 Reassessment: Patient appears in no apparent distress at this time. Patient and/or db family updated on plan of care and expected duration. Pain level reassessed. Patient is alert, oriented x 3, equal unlabored respirations, skin warm/dry/pink. Vital Signs: 10:57 BP 174 / 75; Pulse 79; Resp 16; Temp 98.6(O); Pulse Ox 100% on R/A; Weight 45.36 kg; hb Height 5 ft. 0 in. ; Pain 6/10; 11:00 BP 168 / 73; Pulse 77; Resp 16; Pulse Ox 100% on R/A; db 11:30 BP 163 / 69; Pulse 79; Resp 18; Pulse Ox 100% on R/A; db 12:30 BP 150 / 68; Pulse 73; Resp 16; Pulse Ox 100% on R/A; db 10:57 Body Mass Index 19.53 (45.36 kg, 152.4 cm) hb 10:57 Pain Scale: Adult hb ED Course: 10:42 Patient arrived in ED. mr 10:42 Zane Pillai is Private Physician. mr 10:46 Blanca Deng MD is Attending Physician. cp3 10:58 Triage completed. hb 11:05 Adilia Nguyen, RN is Primary Nurse. db 11:21 BMP Sent. bc6 11:21 Blood Culture Adult (2) Sent. bc6 11:21 CBC with Diff Sent. bc6 11:21 CPK Sent. bc6 11:21 Hepatic Function Sent. bc6 11:21 Lipase Sent. bc6 11:21 Magnesium Sent. bc6 11:21 NT PRO-BNP Sent. bc6 11:21 PT-INR Sent. bc6 11:21 Ptt, Activated Sent. bc6 11:21 Troponin HS Sent. bc6 11:21 Inserted saline lock: 20 gauge in right antecubital area, using aseptic technique. bc6 Blood collected. 11:26 Urinalysis W/Microscopic Sent. bc6 11:29 EKG done, by ED staff. aw1 11:30 Arm band placed on Patient placed in an exam room. db 11:55 XRAY CXR (1 view) In Process Unspecified. EDMS 12:09 CT Abd/Pelvis - IV Contrast Only In Process Unspecified. EDMS 12:48 Naresh Bentley MD is Referral Physician. cp3 13:00 Patient has correct armband on for positive identification. Bed in low position. Call db light in reach. Side rails up X 1. Provided Education on:. Pulse ox on. NIBP on. Warm blanket given. 13:15 No provider procedures requiring assistance completed. IV discontinued, intact, db bleeding controlled, No redness/swelling at site. 13:15 Provided Education on: DISCHARGE. db Administered Medications: 11:30 Drug: NS 0.9% IV 1000 ml IV at 1000 ml once Route: IV; Rate: 1000 ml; Site: right db antecubital; 13:25 Follow up: Response: No adverse reaction; IV Status: Completed infusion; IV Intake: db 1000ml 11:30 Drug: Ondansetron IVP 4 mg IVP once; over 2 minutes Route: IVP; Site: right antecubital;db 13:25 Follow up: Response: No adverse reaction db 11:30 Drug: morphine IVP or IV 2 mg IVP once over 4 mins Route: IVP; Infused Over: 4 mins; db Site: right antecubital; 13:25 Follow up: Response: No adverse reaction db 11:30 Drug: Pantoprazole IVP 40 mg IVP once Route: IVP; Site: right antecubital; db 13:25 Follow up: Response: No adverse reaction db Medication: 13:00 VIS not applicable for this client. db Intake: 13:25 IV: 1000ml; Total: 1000ml. db Outcome: 12:56 Discharge ordered by . cp3 13:15 Discharged to home ambulatory, db 13:15 Condition: stable 13:15 Discharge instructions given to patient, Instructed on discharge instructions, follow up and referral plans. Prescriptions given X 1, 13:25 Patient left the ED. db Signatures: Dispatcher [employer] Blanca Johnston MD MD cp3 Bobo, Iliana, [facility] mr Sindi Flanagan, RN RN Adilia Humphrey RN RN db Katie Luque 6 Arlen Gómez aw1
--- NOTE | 2023-08-08 12:57 | EDPHYS ---
Physician Documentation [facility] Name: Misti Chavarria Age: 72 yrs Sex: Female : 1950 Arrival Date: 08/08/2023 Time: 10:39 Bed 15 Private MD: Zane Pillai ED Physician Blanca Deng HPI: 08/08 13:00 This 72 yrs old Female presents to ER via Ambulatory with complaints of cp3 Constipation, Diabetic. 11:09 Patient is a 72-year-old female with a history of diabetes controlled with oral cp3 medication metformin. Patient endorses her blood sugar has been abnormal ranging from 70s to the 300s. Patient also endorses she has not had a bowel movement in 2 to 3 days and is not passing very much gas. Patient endorses pain to the right groin and right back and abdomen. No fever, chills, nausea, vomiting, diarrhea. Patient also endorses she has lost some weight and her urine has been dark. Patient denies chest pain. Patient reports some shortness of breath. Patient has had multiple surgeries to her neck, cholecystectomy, appendectomy, hysterectomy. . Historical: - Allergies: 10:58 No Known Allergies; hb - Home Meds: 10:58 Metformin Oral [Active]; hb - PSHx: 10:58 Cholecystectomy; Appendectomy; Hysterectomy; Neck; hb - Immunization history:: Adult Immunizations unknown. - Family history:: not pertinent. - Social history:: Smoking status: Patient denies any tobacco usage or history of. ROS: 11:09 Eyes: Negative for injury, pain, redness, and discharge, ENT: Negative for injury, cp3 pain, and discharge, Neck: Negative for injury, pain, and swelling, Respiratory: Negative for shortness of breath, cough, wheezing, and pleuritic chest pain, Back: Negative for injury and pain, MS/Extremity: Negative for injury and deformity, Skin: Negative for injury, rash, and discoloration, Neuro: Negative for headache, weakness, numbness, tingling, and seizure, Psych: Negative for depression, anxiety, suicide ideation, homicidal ideation, and hallucinations, Allergy/Immunology: Negative for hives, rash, and allergies, Endocrine: Negative for neck swelling, polydipsia, polyuria, polyphagia, and marked weight changes, Hematologic/Lymphatic: Negative for swollen nodes, abnormal bleeding, and unusual bruising, 11:09 Constitutional: Positive for fatigue, poor PO intake, weight loss, 11:09 Abdomen/GI: Positive for abdominal pain, 11: : Positive for dark urine, increased frequency, Exam: 11:09 Constitutional: This is a well developed, well nourished patient who is awake, alert, cp3 and in no acute distress. Head/Face: Normocephalic, atraumatic. Eyes: Pupils equal round and reactive to light, extra-ocular motions intact. Lids and lashes normal. Conjunctiva and sclera are non-icteric and not injected. Cornea within normal limits. Periorbital areas with no swelling, redness, or edema. ENT: Nares patent. No nasal discharge, no septal abnormalities noted. Tympanic membranes are normal and external auditory canals are clear. Oropharynx with no redness, swelling, or masses, exudates, or evidence of obstruction, uvula midline. Mucous membranes moist. Chest/axilla: Normal chest wall appearance and motion. Nontender with no deformity. No lesions are appreciated. Cardiovascular: Regular rate and rhythm with a normal S1 and S2. No gallops, murmurs, or rubs. Normal PMI, no JVD. No pulse deficits. Respiratory: Lungs have equal breath sounds bilaterally, clear to auscultation and percussion. No rales, rhonchi or wheezes noted. No increased work of breathing, no retractions or nasal flaring. 11:09 Abdomen/GI: mild tenderness to the generalized abdomen and groin. , Vital Signs: 10:57 BP 174 / 75; Pulse 79; Resp 16; Temp 98.6(O); Pulse Ox 100% on R/A; Weight 45.36 kg; hb Height 5 ft. 0 in. ; Pain 6/10; 11:00 BP 168 / 73; Pulse 77; Resp 16; Pulse Ox 100% on R/A; db 11:30 BP 163 / 69; Pulse 79; Resp 18; Pulse Ox 100% on R/A; db 12:30 BP 150 / 68; Pulse 73; Resp 16; Pulse Ox 100% on R/A; db 10:57 Body Mass Index 19.53 (45.36 kg, 152.4 cm) hb 10:57 Pain Scale: Adult hb MDM: 10:46 Patient medically screened. cp3 11:09 Differential diagnosis: coronary artery disease, diverticulitis, gastritis, cp3 gastroesophageal reflux disease, non-specific abd pain, Peritonitis, Pyelonephritis, urinary tract infection, dka, dehydration, hypoglycemia, hyperglycemia. Data reviewed: vital signs, nurses notes, lab test result(s), EKG, radiologic studies. 11:28 ED course: ekg interpreted by me: rate 72, sinus rhythm, no evidence of acute mi. ED cp3 course: credentialing manager interpreted by me- rate 75, sinus rhythm. 12:44 Consideration of Admission/Observation Escalation of care including cp3 admission/observation considered. patient declined admission. I considered the following discharge prescriptions or medication management in the emergency department Medications were administered in the Emergency Department. See MAR. Independent interpretation of the following test(s) in the Emergency Department rn oncology: rate is 79 beats/min, Rhythm is normal sinus rhythm. Test considered but Not performed: MRI: refer to gi for oupatient evaluation. Response to treatment: the patient's symptoms have markedly improved after treatment. ED course: discussed ct findings with cirrhoitic morphology, hepatic mass, adrenal mass, hgb of 7. recommend close outpatient follow up. 08/08 11:01 Order name: BMP; Complete Time: 12:16 cp3 08/08 12:20 Interpretation: Abnormal: NA 139; K 4.0; CL 106; CO2 29; ANION GAP 8.0; GLUC 197; BUN cp3 22; CRE 1.02; GFR 59; CA 9.0. 08/08 11:01 Order name: Blood Culture Adult (2) cp3 08/08 11:01 Order name: CBC with Diff; Complete Time: 12:16 cp3 11 12:20 Interpretation: Abnormal: WBC 3.70; RBC 2.87; HGB 7.1; HCT 22.8; MCV 79.3; MCH 24.7; cp3 MCHC 31.2; PLT 159; RDW 16.8; MPV 9.2; RENÉE% 46.3; LYM% 31.8; MN% 9.8; EOSINOPHIL % 11.0; BASO% 1.1; NEUT A 1.7; LYMA 1.2; MNA 0.4; EOSA 0.4; BASOA 0.0. 08/08 11:01 Order name: CPK; Complete Time: 12:16 cp3 08/08 11:01 Order name: Hepatic Function; Complete Time: 12:16 3 08/08 12:19 Interpretation: Abnormal: AST 24; ALT 42; ALK 238; BILIT 0.5; BILID 0.2; IBILI, CALC cp3 0.3; TP 7.1; ALB 3.4; GLOB 3.7; A/G 0.9. 08/08 11:01 Order name: Lipase; Complete Time: 12:16 3 08/08 12:19 Interpretation: Abnormal: LIP 228. 3 08/08 11:01 Order name: Magnesium; Complete Time: 12:16 3 08/08 11:01 Order name: NT PRO-BNP; Complete Time: 12:16 3 08/08 12:19 Interpretation: Abnormal: NT PRO-BNP 158. 3 08/08 11:01 Order name: PT-INR; Complete Time: 12:16 3 08/08 11:01 Order name: Ptt, Activated; Complete Time: 12:16 3 08/08 12:18 Interpretation: PTT 30.9. 3 08/08 11:01 Order name: Troponin HS; Complete Time: 12:16 3 08/08 12:19 Interpretation: Troponin HS 5.3. 3 08/08 11:01 Order name: Urinalysis W/Microscopic; Complete Time: 12:16 3 08/08 12:19 Interpretation: Within normal limits. 3 08/08 11:01 Order name: XRAY CXR (1 view); Complete Time: 12:16 3 08/08 12:19 Interpretation: Chest x-ray interpreted by me no acute cardiopulmonary [facility]ce. [facility] 08/08 11:05 Order name: CT Abd/Pelvis - IV Contrast Only; Complete Time: 12:21 3 08/08 12:21 Interpretation: Images reviewed by me- no free fluid or free air, Reviewed. 3 08/08 11:01 Order name: EKG; Complete Time: 11:02 3 08/08 11:01 Order name: Cardiac monitoring; Complete Time: 11:28 3 08/08 11:01 Order name: EKG - Nurse/Tech; Complete Time: 11:28 3 08/08 11:01 Order name: IV Saline Lock; Complete Time: 11:21 3 08/08 11:01 Order name: Labs collected and sent; Complete Time: 11: cp3 08/08 11:01 Order name: O2 Per Protocol; Complete Time: : cp3 08/08 11: Order name: O2 Sat Monitoring; Complete Time: : cp3 Administered Medications: 11:30 Drug: NS 0.9% IV 1000 ml IV at 1000 ml once Route: IV; Rate: 1000 ml; Site: right db antecubital; 13:25 Follow up: Response: No adverse reaction; IV Status: Completed infusion; IV Intake: db 1000ml 11:30 Drug: Ondansetron IVP 4 mg IVP once; over 2 minutes Route: IVP; Site: right antecubital;db 13:25 Follow up: Response: No adverse reaction db 11:30 Drug: morphine IVP or IV 2 mg IVP once over 4 mins Route: IVP; Infused Over: 4 mins; db Site: right antecubital; 13:25 Follow up: Response: No adverse reaction db 11:30 Drug: Pantoprazole IVP 40 mg IVP once Route: IVP; Site: right antecubital; db 13:25 Follow up: Response: No adverse reaction db Disposition Summary: 08/08/23 12:56 Discharge Ordered Condition: Stable cp3 Diagnosis - right groin pain cp3 - right back pain cp3 - hyperglycemia cp3 - elevated lipase cp3 - adrenal nodule cp3 - Liver disease, unspecified cp3 - microcytic anemia cp3 - constipation cp3 Followup: cp3 - With: Naresh Bentley MD - When: 2 - 3 days - Reason: Recheck today's complaints Discharge Instructions: - Discharge Summary Sheet cp3 - Iron Deficiency Anemia, Adult cp3 - Nonalcoholic Fatty Liver Disease Diet, Adult cp3 Forms: - Medication Reconciliation Form cp3 - Thank You Letter cp3 - Antibiotic Education cp3 - Prescription Opioid Use cp3 - Patient Portal Instructions cp3 - Leadership Thank You Letter cp3 Prescriptions: - Colace 100 mg Oral Tablet - take 1 tablet ORAL route every 12 hours; 14 tablet; Refills: 0, Product cp3 Selection Permitted Signatures: Dispatcher [employer] Blanca Johnston MD MD cp3 Sindi Flanagan RN RN Adilia Nguyen RN RN db
[2023-08-08 13:48] VITALS: TEMP 98.6; O2SAT 100
[2023-08-08 14:08] VITALS: BP 150/68
== END 2023-08-08 13:25 | disposition home or self-care (01) ==
LOC: ER 10:39
DX: K59.00 Constipation, unspecified (principal); E11.9 Type 2 diabetes mellitus without complications; R10.31 Right lower quadrant pain; M54.9 Dorsalgia, unspecified; E11.65 Type 2 diabetes mellitus with hyperglycemia; D64.9 Anemia, unspecified; K76.9 Liver disease, unspecified; E27.9 Disorder of adrenal gland, unspecified; R74.8 Abnormal levels of other serum enzymes
CPT/HCPCS: 96361; 93005; 87040 ×2; 85025; 81001; 80048; 36415; 83735; 82550; 85610; 80076; 85730; 84484; 83690; 83880; 74177; 71045; 96375; 96374; 99284; Q9967; C9113; J2405; J7030

== ENCOUNTER 2023-08-12 08:12 | Day surgery (SDC) | payer OTHER ==
[2023-08-12] MEDS ORDERED: NA CHLORIDE 0.9% 250 ML ONE (12:12)
[2023-08-12 14:47] VITALS: BP 149/58; TEMP 98.8; O2SAT 100; BMI 20.5
[2023-08-12 16:24] LABS: Hematocrit 25.5 % (36.0-45.0)
== END 2023-08-12 15:58 | disposition home or self-care (01) ==
LOC: LAB 08:12 → DS 08:12 → EDSTATUS 09:07 → DS 15:58
PROVIDERS: ATTEND Internal Medicine Gastroenterology
DX: D64.9 Anemia, unspecified (principal)
CPT/HCPCS: 36415; 86900; 86850; 86901; 86920; 85018; 85014; 36430; P9016; J7050